=== PATIENT | male | born 1975 | race African-American/Black ===

== ENCOUNTER → 2016-11-12 08:23 | Outpatient (CLI) | payer OTHER | END | disposition home or self-care (01) | LOC: D.CT 08:23 | DX: I87.2 Venous insufficiency (chronic) (peripheral) (principal) ==

== ENCOUNTER 2017-09-23 05:17 | Day surgery (SDC) | payer OTHER ==
[~2017-09-23] VITALS: Ht 180.3 cm; Wt 95.3 kg
--- NOTE | ~2017-09-23 | OP ---
PATIENT NAME: TAVO MOSLEY MEDICAL RECORD: [id number] :75 LOCATION:D.OPS ADMISSION DATE: SURGEON: ULYSSES MORRIS MD DATE OF OPERATION: 09/23/2017 PREOPERATIVE DIAGNOSES: 1. Rheumatoid arthritis also Crohn's disease. 2. Lack of peripheral IV access in a patient who requires frequent IV access. POSTOPERATIVE DIAGNOSES: 1. Rheumatoid arthritis also Crohn's disease. 2. Lack of peripheral IV access in a patient who requires frequent IV access. PROCEDURES: 1. Placement of left infraclavicular PowerPort under fluoroscopic guidance. 2. Immediate surgeon interpretation of the fluoroscopic images. SURGEON: Ulysses Morris MD DRUG ENFORCEMENT ADMINISTRATION AGENT: None. BLOOD LOSS: Minimal. ANESTHESIA: General. COMPLICATIONS: None. The risks, possible complications, and alternatives to the procedure were explained to the patient. He elects to proceed. I specifically discussed with him that if I was unable to place the port on the left side, I would then place it on the right side. He has numerous tattoos involving the chest. I told him that unfortunately one of the incisions would be within the tattoo. He told me that that was okay from his standpoint. The risks, possible complications, and alternatives to procedure were explained to patient. This included the risk of bleeding requiring emergency reoperation, infection, flippage of the port, the port could break or could clot off. OPERATIVE COURSE: The patient was conveyed to the operating room electively on 09/23/2017. No radiologist was present for this procedure. Static fluoroscopic images were obtained and are kept in the PACS system. The surgeon interpretation of the fluoroscopic images is dictated within the body of this operative note. General anesthesia was induced by the anesthesia staff. The left chest and left neck were sterilely prepped and draped. A transverse incision was accomplished in the left infraclavicular chest. Sharp dissection was carried down to the pectoralis fascia. I then created a pocket bluntly in a caudad direction. Through this pocket, I accessed the subclavian vein in an antegrade fashion easily. A guidewire passed easily. A dilator sheath was advanced over the guidewire. This was visualized under fluoroscopy. The dilator and wire were removed. Through the sheath, the PowerPort catheter was advanced. It was advanced to the cavoatrial junction. It was shortened. It was attached to the PowerPort. The locking device was firmly engaged. The port was placed in the OPERATIVE REPORT [id number] GREEN,TAVO pocket and sutured with 3-point fixation to prevent flippage. The 3-point fixation was 3-0 Prolenes. I irrigated the port pocket. There was no bleeding. The adipose tissue was closed with interrupted 3-0 Vicryls. The skin was approximated with a running intracuticular 3-0 Vicryl. I accessed the port. It accessed easily. It aspirated dark, nonpulsatile blood. It also flushed easily. I then unaccessed the port. A sterile dressing was applied. A fluoroscopic image was obtained and it revealed no kinking or twisting of the PowerPort. No flippage. No radiographic evidence of a complication. TRANSINT:[id number] Voice Confirmation ID: [id number] DOCUMENT ID: [id number] ULYSSES MORRIS MD at 1607 CC: [id number] DICTATION DATE: 09/23/17 1104 STITCH BURNISHER: 09/23/17 1139 [facility] 09/23/17 [facility] [address] [place] [address]
[2017-09-23] MEDS ORDERED: GABAPENTIN100 MG PO (08:35)
[2017-09-23] MEDS ORDERED: ULTRAM50 MG PO (08:36)
[2017-09-23] MEDS ORDERED: COUMADIN5 MG PO (08:36)
[2017-09-23] MEDS ORDERED: CARDIZEM CD240 MG PO (08:41)
[2017-09-23] MEDS ORDERED: HUMIRA20 MG/0.4 SQ (08:41)
[2017-09-23] MEDS ORDERED: ZESTRIL40 MG PO (08:42)
[2017-09-23 08:45] VITALS: BP 127/80; Ht 180.3 cm; Wt 95.3 kg
[2017-09-23 09:12] LABS: HEMATOCRIT 41.4 % (42.0-54.0); HEMOGLOBIN 13.8 g/dL (13.5-17.5); MCHC 33.3 g/dL (31.0-37.0); MEAN PLATELET VOLUME 9.5 fL (7.4-10.4); RBC 5.31 10x6/uL (4.20-6.10); RDW 16.3 % (11.5-14.5); WBC 10.8 10x3/uL (4.8-10.8)
[2017-09-23 09:23] LABS: INR 2.76 (0.85-1.17); PROTIME 28.4 SECONDS (11.6-15.0)
[2017-09-23 09:24] LABS: APTT 47.3 SECONDS (22.8-39.4)
== END 2017-09-23 13:35 | disposition home or self-care (01) ==
LOC: D.OPS 05:17
PROVIDERS: Anesthesiology
DX: M06.9 Rheumatoid arthritis, unspecified (principal); K50.90 Crohn's disease, unspecified, without complications; Z01.812 Encounter for preprocedural laboratory examination

== ENCOUNTER 2018-10-27 06:10 | Day surgery (SDC) | payer OTHER ==
[~2018-10-27] VITALS: Ht 177.8 cm; Wt 89.8 kg
--- NOTE | ~2018-10-27 | OP ---
PATIENT NAME: TAVO MOSLEY MEDICAL RECORD: [id number] :75 LOCATION:[facility] ADMISSION DATE: SURGEON: SOLA MORRIS MD DATE OF OPERATION: 10/27/2018 PREOPERATIVE DIAGNOSES: 1. History of Crohn's disease with anal pain and a fistula. 2. History of prior fistulotomy. PREOPERATIVE DIAGNOSES: 1. History of Crohn's disease with anal pain and a fistula. 2. History of prior fistulotomy. 3. Complete breakdown of the mucosal and muscular bridge forming the fistula. The patient now has a wide posterior fissure without perirectal abscess or fistula. PROCEDURE: Anal fissurectomy. SURGEON: Sola Morris MD SENIOR PYTHON DEVELOPER: None. BLOOD LOSS: Minimal. ANESTHESIA: General. COMPLICATIONS: None. The risks, possible complication, and alternatives to the procedure were explained to the patient. He elects to proceed. We again discussed fistulas, how they can be corrected and how setons work. OPERATIVE COURSE: The patient was conveyed the operating room electively on 10/27/2018. General anesthesia was induced by the anesthesia staff. The patient was placed in the lithotomy position. The anus and perianal areas were sterilely prepped and draped. U-shaped anal retractors were placed. There was induration at the 9 o'clock position that was quite thickened with a lot of scar tissue and presumably this is at the site of a prior fistulotomy. I noted no perirectal abscesses. No areas of fluctuance. No fistulas. There was a large wide posterior lying anal fissure. It would have been too risky to perform a lateral internal sphincterotomy as the patient already has some baseline fecal incontinence. At the site of the fissure, submucosal flaps were created sharply. I then abraded the sphincteric muscles without damaging them. I then brought the mucosa together over the fissure with multiple interrupted horizontal mattress 3-0 Vicryl sutures. Gelfoam was applied within the anus and lower rectum. A combination of Marcaine and steroid preparation were used to infiltrate the perianal tissues. Americaine was then applied to the external hemorrhoids. The patient was then extubated and conveyed to post-anesthesia care unit where he was in stable condition. He will be dismissed back to correction with [place] as well as Valium and Colace. There is no reason for the patient to see me in the office unless he develops complication related to this operative procedure. I can see him in consultation on rounds out at the correction. OPERATIVE REPORT [id number] TAVO MOSLEY TRANSINT:[id number] Voice Confirmation ID: [id number] DOCUMENT ID: [id number] SOLA MORRIS MD CC: ABBEY IBARRA MD, SOLA SHIRLEY MD, KENDRA BORDEN MD and [id number] DICTATION DATE: 10/27/18 1216 SUPERVISOR SPEECH: 10/27/18 1310 [facility] [place] [id number] [place] [id number]
[~2018-10-27 06:10] MED LIST: CARDIZEM CD240 MG PO; COUMADIN5 MG PO; GABAPENTIN100 MG PO; HUMIRA20 MG/0.4 SQ; ULTRAM50 MG PO; ZESTRIL40 MG PO
[2018-10-27 07:18] LABS: HEMATOCRIT 36.1 % (42.0-54.0); HEMOGLOBIN 12.2 g/dL (13.5-17.5); MCH 27.9 pg (26.0-34.0); MCHC 33.8 g/dL (31.0-37.0); MCV 82.6 fL (80.0-100.0); MEAN PLATELET VOLUME 8.9 fL (7.4-10.4); RBC 4.37 10x6/uL (4.20-6.10); RDW 17.1 % (11.5-14.5); WBC 8.7 10x3/uL (4.8-10.8)
[2018-10-27 07:59] LABS: APTT 35.1 SECONDS (22.8-39.4); INR 1.92 (0.85-1.17); PROTIME 21.3 SECONDS (11.6-15.0)
[2018-10-27] MEDS ORDERED: VITAMIN B-12100 MCG PO (08:44)
[2018-10-27 08:50] VITALS: BP 120/88; Ht 177.8 cm; Wt 89.8 kg
== END 2018-10-27 13:40 ==
LOC: D.OPS 06:10
PROVIDERS: Anesthesiology; ATTEND Surgery
DX: K60.2 Anal fissure, unspecified (principal); K50.90 Crohn's disease, unspecified, without complications; Z01.812 Encounter for preprocedural laboratory examination